=== PATIENT | female | born 2000 | race Caucasian/White ===

== ENCOUNTER 2023-09-23 20:05 | Emergency (ER) | payer OTHER, SELFPAY ==
[2023-09-23 20:29] VITALS: BP 136/81; PULSE 97; RESP 18; TEMP 35.9; O2SAT 100
[2023-09-23 21:20] LABS: PCR FLU A Negative PCR FLU A (Negative); PCR FLU B Negative PCR FLU B (Negative); PCR RSV Negative PCR RSV (Negative); SARS PCR* Negative SARS-CoV-2 (Negative)
--- NOTE | 2023-09-23 21:49 | ED.NAVMDI ---
HPI - Nausea/Vomiting/Diarrhea General Chief complaint: Nausea/Vomiting Stated complaint: vomiting Time Seen by Provider: 09/23/23 21:45 History of Present Illness HPI Narrative: This 22-year-old female comes in reporting nausea, vomiting, and diarrhea that began several hours ago. She does not report any fevers and has not had any blood in the toilet. She has states that she has had symptoms like this in the past if she does not get enough to eat or drink. She does not report any abdominal pain. Related Data Home Medications Medication Instructions Recorded Confirmed aripiprazole 5 mg tablet (Abilify) 5 mg PO DAILY 09/23/23 09/23/23 fluoxetine 10 mg capsule (Prozac) 10 mg PO DAILY 09/23/23 09/23/23 Allergies Allergy/AdvReac Type Severity Reaction Status Date / Time No Known Drug Allergies Allergy Verified 09/23/23 20:33 Review of Systems Status of ROS: Reports: 10 or more systems reviewed and unremarkable except as noted in History and below Narrative: Constitutional: No fevers, no weight gain or loss. Eyes: No discharge. No vision changes. HENT: No congestion, no sore throat, no ear pain. Cardiovascular: No chest pain, no palpitations. Respiratory: No shortness of breath, no wheezes, no cough. Gastrointestinal: Nausea, vomiting, and diarrhea. Genitourinary: No dysuria, no hematuria. Musculoskeletal: Normal range of motion. Skin: No rashes, no pruritis. Neurological: No dizziness, weakness, sensory change, speech change. Endo/Heme/Allergies: No bruising or bleeding. No polydipsia. Pysch: no suicidality, no anxiety, no insomnia. All other systems reviewed and are negative. Exam Narrative: Exam Narrative: Constitutional: Well-developed, well-nourished, no acute distress. HEENT: Normocephalic, atraumatic. Neck: Normal range of motion. Nontender. Supple. Heart: Regular. No murmurs. Normal rate. Intact distal pulses. Lungs: Clear to auscultation. No chest discomfort. No wheezes, rhonchi, or rales. Abdomen: Normal bowel sounds. Nontender. No rebound tenderness. Genitalia: Deferred. Back: No midline tenderness. Normal range of motion. Extremities: Normal range of motion. No injury. Skin: Intact. No rash. Warm. No erythema or pallor. Neurologic: No altered sensation. No weakness. Alert and oriented. Psychiatric: No suicidality. No anxiety or depression. No insomnia. Nursing notes and vitals signs are reviewed. Const: Vital Signs, click to edit/add: Vital Signs - 24 hr 09/23/23 20:29 Temperature 96.6 F L Pulse Rate [Left P ulse Oximeter] 97 Respiratory Rate 18 Blood Pressure [Ri ght Upper Arm] 136/81 Pulse Oximetry 100 Oxygen Delivery Me thod Room Air Course Vital Signs Vital signs: Initial Vital Signs Temperature 96.6 F L 09/23/23 20:29 Temperature Source Temporal Artery Scan 09/23/23 20:29 Pulse Rate 97 09/23/23 20:29 Respiratory Rate 18 09/23/23 20:29 Blood Pressure 136/81 09/23/23 20:29 Blood Pressure Mean 99 09/23/23 20:29 Blood Pressure Position Sitting 09/23/23 20:29 Pulse Oximetry 100 09/23/23 20:29 Oxygen Delivery Method Room Air 09/23/23 20:29 Vital Signs Temperature 96.6 F L 09/23/23 20:29 Pulse Rate 97 09/23/23 20:29 Respiratory Rate 18 09/23/23 20:29 Blood Pressure 136/81 09/23/23 20:29 Pulse Oximetry 100 09/23/23 20:29 Oxygen Delivery Method Room Air 09/23/23 20:29 Temperature 96.6 F L 09/23/23 20:29 Pulse Rate 97 09/23/23 20:29 Respiratory Rate 18 09/23/23 20:29 Blood Pressure 136/81 09/23/23 20:29 Pulse Oximetry 100 09/23/23 20:29 Oxygen Delivery Method Room Air 09/23/23 20:29 MDM - Nausea/Vomiting/Diarrhea MDM Narrative Medical decision making narrative: This patient comes in with vomiting and diarrhea. A nasal pharyngeal swab is obtained and returns negative for COVID, influenza, and RSV. The patient arrives with normal vital signs. I discussed diagnostic and treatment options and the patient agreed to have IV normal saline and a dose of Zofran. She is okay to return home to increase diet as tolerated. She did receive a prescription for Zofran. Lab Data Labs: Lab Results 09/23/23 Range/Units 20:35 SARS-CoV-2 (PCR) Negative SARS-CoV-2 (Negative) Influenza Type A (PCR) Negative PCR FLU A (Negative) Influenza Type B (PCR) Negative PCR FLU B (Negative) RSV (PCR) Negative PCR RSV (Negative) Discharge Plan Discharge Clinical Impression: Gastroenteritis Patient Disposition: Home, Self-Care Condition: Stable Instructions: Acute Nausea and Vomiting (ED) Additional Instructions: Take medication as needed and directed for nausea. Increase diet as tolerated. Follow up with MD return if worsening. Prescriptions: No Action fluoxetine [Prozac] 10 mg capsule 10 mg PO DAILY aripiprazole [Abilify] 5 mg tablet 5 mg PO DAILY Stand Alone Forms: [employer] Info Instructions
== END 2023-09-23 23:00 | disposition home or self-care (01) ==
PROVIDERS: Emergency Provider Emergency Medicine Emergency Medical Services
DX: K52.9 Noninfective gastroenteritis and colitis, unspecified (principal)
CPT/HCPCS: 87631; 96374; 99284

== ENCOUNTER 2023-09-25 11:36 | Emergency (ER) | payer OTHER, SELFPAY ==
[2023-09-25 12:34] VITALS: BP 159/85; PULSE 62; RESP 20; TEMP 37.6; O2SAT 98
--- NOTE | 2023-09-25 13:49 | ED.ANXIETY ---
HPI - Anxiety General Chief Complaint: Anxiety Stated Complaint: nausea, anxiety Time Seen by Provider: 09/25/23 11:38 History of Present Illness HPI narrative: Patient is a 22-year-old woman who comes in today feeling significantly anxious due to some family stress. She has borderline personality disorder and is on stable doses of Prozac and Abilify. She has had no self-harming thoughts or behavior. She is visiting from [place] and will be heading back in the next few days. She is having hard time sleeping and eating. She has [facility] well short-term benzodiazepine prescriptions in the past. No other concerns patient which is like some short-term help. Again no signs of suicidal or homicidal ideation. Related Data Home Medications Medication Instructions Recorded Confirmed aripiprazole 5 mg tablet (Abilify) 5 mg PO DAILY 09/23/23 09/23/23 fluoxetine 10 mg capsule (Prozac) 10 mg PO DAILY 09/23/23 09/23/23 Allergies Allergy/AdvReac Type Severity Reaction Status Date / Time No Known Drug Allergies Allergy Verified 09/23/23 20:33 Review of Systems Status of ROS: Reports: 10 or more systems reviewed and unremarkable except as noted in History and below PFSH PFS Social History Smoking Status: Current every day smoker What tobacco products do you use: cigarettes Do you use any of these nicotine containing products: Vaping Products How often do you have a drink containing alcohol: 2-4 times a month How many standard drinks containing alcohol do you have on a typical day: 3 or 4 How often do you have six or more drinks on one occasion: Never AUDIT-C Alcohol total score: 3 Non-prescribed substance use: marijuana (any form) Exam Narrative: Exam Narrative: EXAM GENERAL: Patient appears comfortable and well. EYES: No scleral icterus. LYMPH: No supraclavicular or cervical lymphadenopathy. SKIN: Visible skin seen during exam normal or with benign process only. EXT: No dependent lower extremity pedal edema. HEART: Regular rate and rhythm with no murmurs, rubs, or gallops. LUNGS: Clear to auscultation bilaterally with no crackles or wheezes. ABD: Soft, non tender, non distended. PSYCH: Good eye contact, speech is not pressured. Const: Vital Signs, click to edit/add: Vital Signs - 24 hr 09/25/23 12:34 Temperature 99.6 F Pulse Rate [Pulse Oximeter] 62 Respiratory Rate 20 Blood Pressure [Ri ght Upper Arm] 159/85 H Pulse Oximetry 98 Oxygen Delivery Me thod Room Air Course Course ED Course: Patient seen examined. Vital Signs Vital signs: Initial Vital Signs Temperature 99.6 F 09/25/23 12:34 Temperature Source Temporal Artery Scan 09/25/23 12:34 Pulse Rate 62 09/25/23 12:34 Respiratory Rate 20 09/25/23 12:34 Blood Pressure 159/85 H 09/25/23 12:34 Blood Pressure Mean 109 H 09/25/23 12:34 Pulse Oximetry 98 09/25/23 12:34 Oxygen Delivery Method Room Air 09/25/23 12:34 Vital Signs Temperature 99.6 F 09/25/23 12:34 Pulse Rate 62 09/25/23 12:34 Respiratory Rate 20 09/25/23 12:34 Blood Pressure 159/85 H 09/25/23 12:34 Pulse Oximetry 98 09/25/23 12:34 Oxygen Delivery Method Room Air 09/25/23 12:34 Temperature 99.6 F 09/25/23 12:34 Pulse Rate 62 09/25/23 12:34 Respiratory Rate 20 09/25/23 12:34 Blood Pressure 159/85 H 09/25/23 12:34 Pulse Oximetry 98 09/25/23 12:34 Oxygen Delivery Method Room Air 09/25/23 12:34 MDM - Anxiety MDM Narrative Medical decision making narrative: Patient is a 22-year-old visiting his undergoing significant family stress who has some underlying psychiatric issues. She is requesting short-term course of benzodiazepines and would like to follow-up with her doctor upon returning back to [place]. I do think this is reasonable I do not believe she has any danger to herself or anyone else. We will see her back on a p.r.n. basis and treated with short term will use benzodiazepine in the form of 0.5 mg of lorazepam b.i.d. p.r.n.. Discharge Plan Discharge Clinical Impression: Acute anxiety Patient Disposition: Home, Self-Care Condition: Stable Instructions: Anxiety (ED) Additional Instructions: Continue current medications Lorazepam as directed Follow-up with your doctor upon return home. Activity Level: No Restrictions Discharge Diet: Regular Prescriptions: No Action fluoxetine [Prozac] 10 mg capsule 10 mg PO DAILY aripiprazole [Abilify] 5 mg tablet 5 mg PO DAILY Follow Up/Referrals: Provider,Not a Local [Primary Care Provider] - Stand Alone Forms: [employer] Info Instructions
[2023-09-25 14:06] VITALS: BP 156/94; PULSE 76; RESP 16; O2SAT 97
== END 2023-09-25 14:29 | disposition home or self-care (01) ==
LOC: ED 14:27
PROVIDERS: Emergency Provider Internal Medicine
DX: F41.9 Anxiety disorder, unspecified (principal)
CPT/HCPCS: 99283